=== PATIENT | female | born 1995 | race Caucasian/White ===

== ENCOUNTER 2020-03-23 22:54 | Emergency (ER) | payer MEDICARE, OTHER ==
[~2020-03-23] VITALS: Ht 167.6 cm; Wt 94.3 kg
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
--- NOTE | 2020-03-24 06:18 | NUR ---
PT REMAINS IN BED, ON MONITOR AND PULSE OX. VSS.
--- NOTE | 2020-03-24 06:32 | NUR ---
[employer] AT BEDSIDE
[2020-03-24 07:23] VITALS: BP 133/84
--- NOTE | 2020-03-24 07:23 | NUR ---
Patient discharged to home in stable condition. Written and verbal after care instructions given. Patient verbalizes understanding of instruction.Pt ambulatory with a steady gait
== END 2020-03-24 07:24 | disposition home or self-care (01) ==
LOC: ER 22:58
DX: T76.21XA Adult sexual abuse, suspected, initial encounter (principal); Z85.830 Personal history of malignant neoplasm of bone; Z88.8 Allergy status to other drugs, medicaments and biological substances